=== PATIENT | female | born 1955 | race Caucasian/White ===

== ENCOUNTER 2017-01-19 19:52 | Emergency (ER) | payer OTHER ==
[~2017-01-19] VITALS: Ht 154.9 cm; Wt 61.5 kg
[2017-01-19 20:09] VITALS: Ht 154.9 cm; Wt 61.5 kg
[2017-01-19] MEDS ORDERED: MECLIZINE 12.5 MG TAB PO ONE (21:00)
[2017-01-19] MEDS ORDERED: NICARDipine HCL 30 MG CAPSULE PO ONE (21:00)
--- NOTE | 2017-01-19 22:33 | RADRPT ---
PROCEDURE: Noncontrast CT Head. CLINICAL INDICATION: Pain. TECHNIQUE: Noncontrast CT of the head was obtained. The administered radiation dose was CTDI vol = 45 mGy, DLP = 630 mGy-cm. COMPARISON: No pertinent prior examinations were submitted for comparison. FINDINGS: The ventricles and sulci are within normal limits. There is no acute intracranial hemorrhage or ext ra-axial fluid collection. There is no mass effect. No midline shift is identified. There is no loss of corral-white differentiation to suggest acute infarction. The orbits are within normal limits. The paranasal sinuses and mastoid air cells are without fluid. No destructive osseous lesion is identified. IMPRESSION: No acute findings. RPTAT: HIKT .Golden Deleon MD, MD Date Time Electronically viewed and signed by .Golden Deleon MD, on 01/19/2017 22:32 .T/
[2017-01-19] MEDS ORDERED: MECL12.574 PO (22:41)
--- NOTE | 2017-01-19 22:44 | ERD ---
ER Documentation Chief Complaint Date/Time DATE: 01/19/17 TIME: 22:43 Chief Complaint Dizziness x1 day. More pronounced when ambulating HPI Patient is a 61-year-old female with hypertension who presents with dizziness. 2 days ago she was given fluoxetine and a combination of benazepril and hydrochlorothiazide per her primary doctor. This is the first time she had taken these medications. After the first dose of both she felt very sick and nauseous. She felt the room was spinning. She feels like this is been going on for the past 2 days while she is taking these medications. Upon review of old medical records this is the patient's first visit to the emergency department. Her primary doctor is Dr. Grover. ROS All systems reviewed and are negative except as per history of present illness. Medications Home Meds Active Scripts Meclizine Hcl* (Antivert*) 12.5 Mg Tab, 25 MG PO Q6H Y for DIZZINESS, #20 TAB Prov:CELESTINA HERNANDEZ MD 01/19/17 Allergies Allergies: Coded Allergies: No Known Allergy (Unverified , 01/19/17) PMhx/Soc Positive for hypertension and depression FmHx Family History: No diabetes Physical Exam Vitals Vital Signs Date Time Temp Pulse Resp B/P Pulse Ox O2 Delivery O2 Flow Rate FiO2 01/19/17 20:09 98.7 88 20 186/83 97 Physical Exam Const: No acute distress Head: Atraumatic Eyes: Normal Conjunctiva ENT: Normal External Ears, Nose and Mouth. Neck: Full range of motion..~ No meningismus. Resp: Clear to auscultation bilaterally Cardio: Regular rate and rhythm, no murmurs Abd: Soft, non tender, non distended. Normal bowel sounds Skin: No petechiae or rashes Back: No midline or flank tenderness Ext: No cyanosis, or edema Neur: Awake and alert, cranial nerves II through XII intact, no slurred speech, strength is 5 out of 5 in all 4 extremities, no pronator drift Psych: Normal Mood and Affect Results 24 hrs Laboratory Tests Test 01/19/17 21:26 Bedside Glucose 104mg/dL Current Medications Medications (Trade) Dose Ordered Sig/Altaf Route PRN Reason Start Time Stop Time Status Last Admin Dose Admin Nicardipine HCl (Cardene) 30 mg ONCE ONCE PO 01/19/17 21:00 01/19/17 21:01 DC 01/19/17 21:01 Meclizine HCl (Antivert) 25 mg ONCE ONCE PO 01/19/17 21:00 01/19/17 21:01 DC 01/19/17 21:00 Procedures/MDM EKG read by me: Rate/Rhythm: Bigeminy a rate of 87 Intervals: Normal Impression: Bigeminy without ischemia CT brain negative per radiology. Accu-Chek is normal. Patient is a 61-year-old female presents with dizziness. Her neurologic exam is normal. CT scan of the brain shows no intrarenal mass or hemorrhage. Accu- Chek was normal. EKG shows no signs of ischemia. At this point I doubt intracranial mass, hemorrhage, or stroke. I doubt acute coronary syndrome, hypoglycemia, or hyperglycemia. I believe outpatient management is appropriate. I believe that these symptoms may be related to the new medications and I told her she would have to stop these and talk to her doctor about being prescribed another medication. She can return for any worsening symptoms. She did have hypertension and was given Cardene by mouth as well. Departure Diagnosis: Primary Impression: Dizziness Additional Impression: Hypertension Hypertension type: essential hypertension Qualified Code: I10 - Essential hypertension Condition: Fair Patient Instructions: Dizziness, Unk Cause Referrals: Dr. Grover Additional Instructions: Llame al doctor MAANA y yadiel cece AMY PARA DENTRO DE 1-2 ALFARO.Dgale a la secretaria que nosotros le instruimos hacer esta amy.Avise o llame si hardin condicin se empeora antes de la amy. Regresa aqui si peor o no mejor. CELESTINA HERNANDEZ MD Jan 19, 2017 22:44
[2017-01-19 23:00] VITALS: BP 118/70; PULSE 82; RESP 20; TEMP 98
== END 2017-01-19 23:00 | disposition home or self-care (01) ==
LOC: E/R 19:52
DX: R42 Dizziness and giddiness (principal); I10 Essential (primary) hypertension; R40.2142 Coma scale, eyes open, spontaneous, at arrival to emergency department; R40.2252 Coma scale, best verbal response, oriented, at arrival to emergency department; R40.2362 Coma scale, best motor response, obeys commands, at arrival to emergency department
CPT/HCPCS: 70450; 82962; 93005; Z7502; Z7610

== ENCOUNTER 2018-10-25 03:24 | Emergency (ER) | payer OTHER ==
[~2018-10-25] VITALS: Ht 152.4 cm; Wt 56.3 kg
[~2018-10-25 03:24] MED LIST: MECL12.574 PO
[2018-10-25 03:35] VITALS: Ht 152.4 cm; Wt 56.3 kg
[2018-10-25] MEDS ORDERED: ONDANSETRON 4 MG INJ IV ONE (05:39)
[2018-10-25] MEDS ORDERED: SOD CHLORIDE 0.9% 500 ML IV ONE (05:39)
[2018-10-25] MEDS ORDERED: ASPIRIN 325 MG TAB PO ONE (05:39)
--- NOTE | 2018-10-25 06:11 | ERD ---
ER Documentation Chief Complaint Chief Complaint dizziness x 1 week with n/v/ left arm pain x 1 day HPI 63-year-old female with history of hypertension, depression and vertigo presents the ED complaining of a one-week history of intermittent episodes of dizziness with nausea but no vomiting. Tinnitus but no other hearing changes. Denies URI symptoms, odynophagia or rhinorrhea. Denies headache, visual changes, focal weakness or numbness. No neck or back pain. She is also experiencing intermittent episodes of unprovoked, atraumatic, crampy, nonradiating left arm pain over the last several days but no pain currently. Denies chest pain, palpitations or shortness of breath. No abdominal pain, diarrhea or constipation. No fevers or chills. ROS All systems reviewed and are negative except as per history of present illness. Medications Home Meds Active Scripts Meclizine Hcl* (Antivert*) 12.5 Mg Tab, 25 MG PO Q8H PRN for DIZZINESS, #12 TAB Prov:SAE DE LO SSANTOS MD 10/25/18 Meclizine Hcl* (Antivert*) 12.5 Mg Tab, 25 MG PO Q6H PRN for DIZZINESS, #20 TAB Prov:CELESTINA HERNANDEZ MD 01/19/17 Allergies Allergies: Coded Allergies: No Known Allergy (Unverified , 10/25/18) PMhx/Soc Reviewed Medical and Surgical Hx: pt denies Surgical Hx History of Surgery: No Anesthesia Reaction: No Hx Neurological Disorder: No Hx Respiratory Disorders: No Hx Cardiac Disorders: Yes (HTN) Hx Psychiatric Problems: No Hx Miscellaneous Medical Probl: No Hx Alcohol Use: Yes (OCCASIONAL BEER) Hx Substance Use: No Hx Tobacco Use: No Smoking Status: Never smoker FmHx No sudden cardiac , stroke or cancer Physical Exam Vitals Vital Signs Date Temp Pulse Resp B/P (MAP) Pulse Ox O2 O2 Flow FiO2 Time Delivery Rate 10/25/18 98.0 86 21 136/68 100 Room Air 06:20 (90) 10/25/18 88 24 132/74 100 Room Air 06:04 (93) 10/25/18 97.9 90 16 179/94 97 03:35 (122) Physical Exam Const: Alert, no acute distress. Head: Atraumatic Eyes: Normal Conjunctiva ENT: Normal External Ears, Nose and Mouth. Neck: Full range of motion carotids 2+ bilaterally without bruits.. No meningismus. Resp: Breath sounds are equal and clear to auscultation bilaterally Cardio: Regular rate and rhythm, no murmurs Abd: Soft, non tender, non distended. Normal bowel sounds Skin: No petechiae or rashes Back: No midline or flank tenderness Ext: No cyanosis, or edema Neur: Awake and alert. Cranial nerves II through XII are grossly intact. Motor and sensory equal bilaterally. Normal gait. No dysdiadochokinesis. Psych: Anxious but not depressed. Result Diagram: 10/25/1848 10/25/1848 Results 24 hrs Laboratory Tests Test 10/25/18 05:45 10/25/18 05:48 Bedside Urine pH (LAB) 6.0 Bedside Urine Protein (LAB) Negative Bedside Urine Glucose (UA) Negative Bedside Urine Ketones (LAB) Negative Bedside Urine Blood 2+ Bedside Urine Nitrite (LAB) Negative Bedside Urine Leukocyte Esterase (L Negative White Blood Count 9.7 10^3/ul Red Blood Count 4.95 10^6/ul Hemoglobin 14.4 g/dl Hematocrit 43.1 % Mean Corpuscular Volume 87.1 fl Mean Corpuscular Hemoglobin 29.1 pg Mean Corpuscular Hemoglobin Concent 33.4 g/dl Red Cell Distribution Width 13.1 % Platelet Count 267 10^3/UL Mean Platelet Volume 10.4 fl Immature Granulocytes % 0.300 % Neutrophils % 72.2 % Lymphocytes % 20.0 % Monocytes % 5.9 % Eosinophils % 1.0 % Basophils % 0.6 % Nucleated Red Blood Cells % 0.0 /100WBC Immature Granulocytes # 0.030 10^3/ul Neutrophils # 7.0 10^3/ul Lymphocytes # 1.9 10^3/ul Monocytes # 0.6 10^3/ul Eosinophils # 0.1 10^3/ul Basophils # 0.1 10^3/ul Nucleated Red Blood Cells # 0.0 10^3/ul Activated Partial Thromboplast Time 26.4 Sec Sodium Level 144 mmol/L Potassium Level 3.8 mmol/L Chloride Level 108 mmol/L Carbon Dioxide Level 25 mmol/L Anion Gap 11 Blood Urea Nitrogen 10 mg/dl Creatinine 0.81 mg/dl Est Glomerular Filtrat Rate mL/min > 60 mL/min Glucose Level 103 mg/dl Calcium Level 9.5 mg/dl Troponin I < 0.012 ng/ml Current Medications Medications Dose Sig/Altaf Start Time Status Last (Trade) Ordered Route PRN Stop Time Admin Dose Reason Admin Sodium 500 ml @ Q1H ONCE 10/25/18 DC 10/25/18 Chloride 500 mls/hr IV 05:39 05:52 10/25/18 06:38 Aspirin 325 mg ONCE ONCE 10/25/18 DC 10/25/18 (Aspirin) PO 05:39 05:52 10/25/18 05:40 Ondansetron 4 mg ONCE ONCE 10/25/18 DC 10/25/18 HCl (Zofran IV 05:39 05:52 Inj) 10/25/18 05:40 Procedures/MDM DOCUMENTS REVIEWED: ED nurse, prior ED visit for dizziness EKG: Time: 03: 31. Sinus rhythm. Rate: 99. Normal MS and QRS. No acute ST segment elevation or depression. No ectopy. Normal axis. My Interpretation IMAGING: PROCEDURE: XR Chest. CLINICAL INDICATION: Chest pain TECHNIQUE: Single frontal view of the chest was obtained. COMPARISON: None FINDINGS: The heart is within normal limits. The thoracic aorta is calcified. There is a mild patchy lower lobe infiltrate versus atelectasis. There is no pleural effusion or pneumothorax. RPTAT: AA IMPRESSION: Mild patchy left lower lobe infiltrate versus atelectasis. Calcified aorta consistent with atherosclerotic disease. .Simeon Anderson MD, MD Date Time Electronically viewed and signed by .Simeon Anderson MD, on 10/25/2018 07:07 MEDICAL DECISION MAKIN-year-old female with history of hypertension, depression and vertigo presents the ED complaining of a one-week history of intermittent episodes of dizziness left arm pain. CBC to evaluate for leukocytosis and anemia is unremarkable. Chemistry is negative for electrolyte abnormalities, renal insufficiency or hypoglycemia. Troponin is negative. EKG reveals no evidence of ischemia or dysrhythmia. No evidence of meningitis, intracranial bleed, seizure, stroke, or elevated intracranial pressure. Prior CT for similar symptoms was negative and neuro imaging at this time is not indicated. Patient's presentation is consistent with previously diagnosed peripheral vertigo likely benign positional vertigo although labyrinthitis and Mnire's disease are also considered. The overall clinical picture does not suggest signs of a posterior stroke. Patient's neurologic symptoms have been evaluated in the department and have stabilized. Left arm pain of uncertain etiology. A vascular etiology including ACS, DVT and aortic dissection unlikely and imaging is deferred. Chest x-ray revealed left lower lobe atelectasis versus infiltrate however patient has no fever, cough, shortness of breath or other symptoms of pneumonia. An occult neoplasm is unlikely. Stable for discharge with precautionary instructions and outpatient follow-up as counseled. Though the patient's latest blood pressure was elevated (>120/80), the patient has a known history of hypertension and urged to pursue adjustment of their medical therapy within a week with their primary care physician. Please refer to the medication reconciliation form for the current list of hypertensive medications. Counseled patient and family regarding diagnostic workup, diagnosis and need for followup. Understands to return to ED if symptoms recur, worsen or any other concerns. Departure Diagnosis: Primary Impression: Dizziness Additional Impressions: Peripheral vertigo Laterality: unspecified laterality Qualified Codes: H81.399 - Other p eripheral vertigo, unspecified ear Left arm pain Accelerated hypertension Condition: Stable SAE DE LOS SANTOS MD October 25, 2018 06:11
[2018-10-25 06:20] VITALS: BP 136/68; PULSE 86; RESP 21
[2018-10-25] MEDS ORDERED: MECL12.574 PO (08:10)
== END 2018-10-25 08:30 | disposition home or self-care (01) ==
LOC: E/R 03:24
DX: H81.399 Other peripheral vertigo, unspecified ear (principal); I10 Essential (primary) hypertension; M79.602 Pain in left arm
CPT/HCPCS: 36415; 71045; 80048; 81003; 84484; 85025; 85730; 93005; 96374; J2405; J7040; Z7502; Z7610